=== PATIENT | female | born 1970 | race African-American/Black ===

== ENCOUNTER 2018-01-01 18:59 | Emergency (ER) | payer SELFPAY ==
[~2018-01-01] VITALS: Ht 167.6 cm; Wt 98.6 kg
[2018-01-01] MEDS ORDERED: ACETAMINOPHEN 325 MG TABLET PO ONE (21:45)
[2018-01-01] MEDS ORDERED: KETOROLAC TROMETHAMINE 30 MG/ML VIAL IM ONE (21:45)
[2018-01-01 22:04] VITALS: BP 131/76
== END 2018-01-01 22:27 | disposition home or self-care (01) ==
LOC: EMS 19:00
DX: M54.5 Low back pain (principal); G89.29 Other chronic pain; M54.2 Cervicalgia; R51 Headache
CPT/HCPCS: 81025; 96372; 99283; J1885

== ENCOUNTER 2020-09-04 13:19 | Emergency (ER) | payer MEDICAID ==
[~2020-09-04] VITALS: Ht 165.1 cm; Wt 90.9 kg
[2020-09-04] MEDS: KETOROLAC TROMETHAMINE 30 MG/ML VIAL IM ONE ×2 (14:01→14:05)
[2020-09-04] MEDS ORDERED: IBUPROFEN 800 MG TABLET PO ONE (15:15)
[2020-09-04] MEDS ORDERED: CEPHALEXIN MONOHYDRATE 500 MG CAPSULE PO ONE (15:15)
[2020-09-04 15:47] LABS: BASOPHILS % (AUTO) 0.4 % (0.0-2.0); EOSINOPHILS % (AUTO) 3.5 % (1.0-6.0); HEMATOCRIT 37.2 % (36-46); HEMOGLOBIN 12.3 g/dL (12.0-16.0); LYMPHOCYTES # (AUTO) 2.2 K/uL (1.0-4.8); LYMPHOCYTES % (AUTO) 29.4 % (22.0-44.0); MEAN CORPUSCULAR HEMOGLOBIN 26.7 pg (26.0-34.0); MEAN CORPUSCULAR VOLUME 81 fL (80-100); MONOCYTES # (AUTO) 0.7 K/uL (0.1-1.0); MONOCYTES % (AUTO) 9.8 % (2.0-9.0); NEUTROPHILS # (AUTO) 4.3 K/uL (1.8-7.7); NEUTROPHILS % (AUTO) 56.9 % (40.0-70.0); PLATELET COUNT (AUTO) 265 K/uL (150-450); RED BLOOD CELL COUNT(AUTO) 4.58 MIL/uL (4.00-5.20); RED CELL DISTRIBUTION WIDTH 15.3 % (11.5-14.5)
[2020-09-04 16:06] LABS: ANION GAP 9 mmol/L (8-16); CALCIUM, TOTAL 8.7 mg/dL (8.8-10.5); CARBON DIOXIDE 29 mmol/L (22-29); CHLORIDE 103 mmol/L (98-107); CREATININE 0.86 mg/dL (0.60-1.30); GLOMERULAR FILTR. RATE CALC > 60 mL/min (>60); GLUCOSE,RANDOM 104 mg/dL (70-110); POTASSIUM 3.6 mmol/L (3.5-5.1); SODIUM SERUM 141 mmol/L (136-145); UREA NITROGEN, BLOOD 16 mg/dL (7-18)
[2020-09-04 16:12] LABS: ALANINE AMINOTRANSFERASE 23 U/L (12-78); ALBUMIN 3.2 g/dL (3.4-5.0); ALKALINE PHOSPHATASE 110 U/L (46-116); ASPARTATE AMINOTRANSFERASE 20 U/L (15-37); BILIRUBIN,TOTAL 0.4 mg/dL (0.1-1.0); TOTAL PROTEIN, SERUM 7.8 g/dL (6.4-8.2)
[2020-09-04 16:16] VITALS: BP 129/72
== END 2020-09-04 16:24 | disposition home or self-care (01) ==
LOC: EMS 14:54
DX: I80.01 Phlebitis and thrombophlebitis of superficial vessels of right lower extremity (principal)
CPT/HCPCS: 36415; 80053; 85025; 93971; 99284; J1885